=== PATIENT | female | born 1960 | race Caucasian/White ===

== ENCOUNTER 2018-11-03 06:35 | Emergency (ER) | payer OTHER ==
[~2018-11-03] VITALS: Ht 177.8 cm; Wt 106.6 kg
[2018-11-03] MEDS ORDERED: VERAPAMIL ER120 MG (06:44)
[2018-11-03] MEDS ORDERED: ZESTRIL20 MG (06:45)
== END 2018-11-03 10:52 | disposition home or self-care (01) ==
LOC: ER 06:35
DX: N20.1 Calculus of ureter (principal)